=== PATIENT | female | born 1950 | race Caucasian/White ===

== ENCOUNTER → 2016-12-29 | Outpatient (REF) | payer OTHER ==
[2016-12-29 18:40] LABS: PERCENT SATURATION 9.2 % (13.2-37.4)
== END ==
LOC: M LAB REF 16:38
PROVIDERS: ATTEND Internal Medicine Medical Oncology
DX: Z79.811 Long term (current) use of aromatase inhibitors (principal); C50.411 Malignant neoplasm of upper-outer quadrant of right female breast

== ENCOUNTER → 2017-01-05 | Outpatient (REF) | payer OTHER ==
[2017-01-07 00:09] LABS: ENDOMYSIAL ABY IgA Negative (Negative)
== END ==
LOC: M LAB REF 12:32
PROVIDERS: ATTEND Internal Medicine Medical Oncology
DX: C50.919 Malignant neoplasm of unspecified site of unspecified female breast (principal)

== ENCOUNTER → 2017-02-11 | Outpatient (CLI) | payer OTHER ==
--- NOTE | 2017-02-12 05:45 | REP ---
LOW-DOSE LUNG SCREENING CT: 02/11/2017. Clinical history: Smoker, history of nicotine dependence. 55 pack years. Stopped smoking 8 months ago. Technique: Low dose screening lung CT with lung windows at 3 mm slice interval and projection. Comparison: chest x-ray: 05/13/2012. Findings: Lungs are well inflated. In the left upper lobe posteriorly and medially is a lobulated nodular density 14 x 10 mm. It has two branching limbs from it. This could be a pulmonary varix or a lung nodule. This is seen on images 20-25. Some of it stranding superior and medial to it towards the right paraspinal region in the upper thoracic levels. On image 70 and 71, there is a 5.5 mm smoothly marginated nodule in the left lower lobe just behind the major fissure to the left heart border. Neither of these lung lesions show calcification. There is another subpleural nodule left lower lobe 4.6 mm long just posterior to the midclavicular line on image 63 in that left lung. Some ill-defined parenchymal fibrotic change or sub-solid density in the right paraspinal region on images 24 through 26. There is 2 mm nodule right upper lobe mid axial mid axillary line on image 17. I do not see other significant lung lesions or nodules. There is some scarring in the lateral segment right middle lobe abutting the pleural surface in the mid axillary line. Impression: 1. Lung RADS category 4 suspicious. A 14 x 10 mm lesion in the left upper lobe which could be solid nodule or vascular pulmonary structure. It appears continuous with the pulmonary vessel or immediately adjacent. Contrast CT recommended. The other smaller nodules are as described. Similarly they can be followed at the time of the definitive contrast CT. Signed by Dane Willis MD 02/12/2017 04:33 P
== END ==
LOC: M RAD 12:37
PROVIDERS: ATTEND Internal Medicine Medical Oncology
DX: Z87.891 Personal history of nicotine dependence (principal)

== ENCOUNTER → 2017-03-03 | Outpatient (CLI) | payer OTHER ==
--- NOTE | 2017-03-03 13:51 | REPMRS ---
Patient History The patient states she had a clinical breast exam in 02/24 Patient has history of cancer in the right breast at age 61. Family history of premenopausal breast cancer in paternal aunt at age 50 or over. Benign radio exam breast specimen of the right breast, April 25, 2014. Benign stereotatic loc for ea lesion of the right breast, April 25, 2014. Malignant radio exam breast specimen of the right breast, May 19, 2012. Malignant localization of breast nodule of the right breast, May 19, 2012. Radiation therapy of the right breast, 2011. Benign stereotactic core biopsy of the left breast. Benign excisional biopsy of the right breast. Taking tamoxifen for 5 years. Digital Woman Screen Mammo: March 03, 2017 - Exam #: [id number] Bilateral CC and MLO view(s) were taken. Technologist: Vannesa Santana, Technologist Prior study comparison: February 18, 2016, digital woman screen mammo performed at [facility] to [facility]. February 15, 2015, digital woman screen mammo performed at [facility] to [facility]. February 22, 2014, right breast digital mammo diagnostic unilateral, performed at [facility]. FINDINGS: There are scattered fibroglandular densities. There are stable post treatment changes in the right breast. There is a needle biopsy marker clip in the left breast. There has been no change in the appearance of the mammogram from the prior studies. There is a mild amount of scattered fibroglandular density which is fairly symmetric. There is no interval development of dominant mass, architectural distortion, or clustered microcalcification suggestive of malignancy. ASSESSMENT: BI-RADS/ACR category 1 mammogram. Negative. Recommendation Routine screening mammogram in 1 year (for women over age 40). This mammogram was interpreted with the aid of an FDA-approved computer-aided dectection system. Electronically Signed By: Adryan Medina MD 03/03/17 [id number]
== END ==
LOC: M WHC 11:07
PROVIDERS: ATTEND Nurse Practitioner Family
DX: Z01.419 Encounter for gynecological examination (general) (routine) without abnormal findings (principal); Z12.31 Encounter for screening mammogram for malignant neoplasm of breast; Z12.12 Encounter for screening for malignant neoplasm of rectum; Z85.3 Personal history of malignant neoplasm of breast
CPT/HCPCS: 82270; G0101; G0202

== ENCOUNTER → 2017-03-04 | Outpatient (REF) | payer OTHER ==
[2017-03-04 15:00] LABS: BLOOD UREA NITROGEN 10 MG/DL (7-18); CREATININE FOR GFR 0.62 MG/DL (0.55-1.02); GLOMERULAR FILTRATION RATE > 60.0 (>45)
== END ==
LOC: M LAB REF 13:30
PROVIDERS: ATTEND Internal Medicine Pulmonary Disease
DX: R91.8 Other nonspecific abnormal finding of lung field (principal)

== ENCOUNTER → 2017-03-30 | Outpatient (REF) | payer OTHER ==
[2017-03-30 14:48] LABS: PERCENT SATURATION 15.7 % (13.2-37.4)
== END ==
LOC: M LAB REF 13:23
PROVIDERS: ATTEND Internal Medicine Medical Oncology
DX: C50.919 Malignant neoplasm of unspecified site of unspecified female breast (principal)

== ENCOUNTER → 2017-03-31 | Outpatient (REF) | payer OTHER ==
[2017-03-31 13:24] LABS: BLOOD UREA NITROGEN 7 MG/DL (7-18); CREATININE FOR GFR 0.55 MG/DL (0.55-1.02); GLUCOSE, FASTING 126 MG/DL (80-110)
[2017-03-31 13:25] LABS: ALBUMIN 3.6 GM/DL (3.2-5.2); ALKALINE PHOSPHATASE 59 U/L (45-117); ALT/SGPT 37 U/L (12-78); ANION GAP 6 MEQ/L (8-16); AST/SGOT 23 U/L (15-37); BILIRUBIN,TOTAL 0.3 MG/DL (0.2-1.0); CALCIUM LEVEL 8.6 MG/DL (8.8-10.2); CARBON DIOXIDE LEVEL 31 MEQ/L (21-32); CHLORIDE LEVEL 103 MEQ/L (98-107); CHOLESTEROL LEVEL 108 MG/DL (<200); GLOMERULAR FILTRATION RATE > 60.0 (>45); POTASSIUM SERUM 3.7 MEQ/L (3.5-5.1); SODIUM LEVEL 140 MEQ/L (136-145); TOTAL PROTEIN 6.6 GM/DL (6.4-8.2); TRIGLYCERIDES LEVEL 222 MG/DL (<150)
== END ==
LOC: M LABDRAW1 11:42
PROVIDERS: ATTEND Emergency Medicine
DX: E11.65 Type 2 diabetes mellitus with hyperglycemia (principal); I10 Essential (primary) hypertension; E78.2 Mixed hyperlipidemia

== ENCOUNTER → 2017-04-08 | Outpatient (CLI) | payer OTHER ==
[~2017-04-08] MED LIST: ISOVUE-370 76% 100ML VIAL (Q9967) As Ordered ONE
--- NOTE | 2017-04-08 13:16 | REP ---
CT of the chest with IV contrast: Comparison is the low-dose screening chest CT without IV contrast dated 02/11/2017 that identified a left upper lobe lung nodule. 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 The thoracic aorta is well opacified with intraluminal contrast. The pulmonary arteries are less well opacified, however, the aneurysm can be seen along the course of the left upper lobe pulmonary artery and is opacified similar to the remainder of the pulmonary arteries. The aneurysm measures 10.2 mm short axis diameter and spans a craniocaudad length of approximately 18 mm and occurs just prior to a bifurcation and in cooperates the bifurcation. There are no other lung nodules or masses. There are no acute infiltrates or effusions. There is an enlarged anterior mediastinal node measuring up to 13 mm short axis. There is no other mediastinal adenopathy. There is no hilar adenopathy. There is a large 2.7 cm mass/cyst in the thyroid left lobe and a smaller 10 mm mass/cyst in the thyroid isthmus. There is also a calcification in the thyroid isthmus. Thyroid ultrasound and radionuclide thyroid scan follow-up might be considered. There is no axillary adenopathy. The thoracic aorta is unremarkable. Cardiac size is normal. There is no pericardial effusion. The visualized upper abdominal contents are unremarkable except that the liver is less dense than the spleen suggestive of hepato steatosis. 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 No other lung nodules or masses are identified. There is an enlarged anterior mediastinal node. There are two masses/cyst in the thyroid and in thyroid calcifications. Follow-up thyroid ultrasound and with scan might be considered. There are no acute cardiopulmonary findings. No adenopathy. Otherwise, negative study except that the liver is diffusely slightly less dense than the spleen compatible with hepato steatosis. Signed by Neftali Del Rosario MD 04/08/2017 01:07 P
== END ==
LOC: M RAD 10:24
PROVIDERS: ATTEND Internal Medicine Pulmonary Disease
DX: R91.8 Other nonspecific abnormal finding of lung field (principal)
CPT/HCPCS: 71260; Q9967

== ENCOUNTER → 2017-04-14 | Outpatient (CLI) | payer OTHER ==
--- NOTE | 2017-04-15 09:45 | DEXA ---
AP SPINE L1 - L4 1.485 2.3 4.0 LT FEMUR TOTAL 1.122 0.9 2.2 RT FEMUR TOTAL 1.139 1.0 2.4 TOTAL BODY TOTAL OTHER DUAL FEMUR FRAX* ASSESSMENT Risk factors: History of adult fracture. 10 year probability of fracture Major osteoporotic fracture 11.6 % Hip fracture 0.5 % COMMENTS: Normal bone densitometry of the spine and hips. The density of the spine has increased 4.1% since the initial exam on 01/2001. The spine density has increased 1.0% since the most recent exam on 02/2014. The density of the left hip has decreased 13.0% since the initial exam on 2000. The density of the left hip has decreased 7.2% since the most recent exam on 2013. The density of the right hip has decreased 8.1% since the initial exam on 2000. The density of the right hip has decreased 4.0% since the most recent exam on 2013. FOLLOW-UP: Recommendation for the next bone density exam: 5 years. MINDA
== END ==
LOC: M WHC 10:24
PROVIDERS: ATTEND Internal Medicine Medical Oncology
DX: N95.1 Menopausal and female climacteric states (principal); Z79.899 Other long term (current) drug therapy

== ENCOUNTER → 2017-07-01 | Outpatient (REF) | payer OTHER ==
[2017-07-01 14:00] LABS: PERCENT SATURATION 14.3 % (13.2-45.0)
== END ==
LOC: M LAB REF 10:20
PROVIDERS: ATTEND Internal Medicine Medical Oncology
DX: C50.919 Malignant neoplasm of unspecified site of unspecified female breast (principal)

== ENCOUNTER → 2017-08-30 | Outpatient (CLI) | payer OTHER ==
[2017-08-30 18:55] LABS: BLOOD UREA NITROGEN 10 MG/DL (7-18); CREATININE FOR GFR 0.67 MG/DL (0.55-1.02); GLOMERULAR FILTRATION RATE > 60.0 (>45)
== END ==
LOC: M SMT 15:00
PROVIDERS: ATTEND Internal Medicine Pulmonary Disease
DX: Q27.30 Arteriovenous malformation, site unspecified (principal)

== ENCOUNTER → 2017-09-22 | Outpatient (CLI) | payer OTHER ==
--- NOTE | 2017-09-22 13:35 | REP ---
CT of the chest with IV contrast: Comparison is 04/08/2017. On the prior study there was a 10 mm pulmonary artery aneurysm posteriorly in the left upper lobe. This aneurysm is no longer present on the study today. There are no emboli in the pulmonary trunk or central pulmonary arteries. There are no emboli in the pulmonary lobe or segment branches. Previously there was an enlarged anterior mediastinal node on the left measuring up to 13 mm short axis. This node has increased in size and has a multilobular appearance today measuring 3.4 x 4.1 cm. The 2.7 cm low-density mass in the left lobe of the thyroid is unchanged. The 1 cm low density mass in the thyroid isthmus is unchanged. The calcification in the thyroid isthmus is unchanged. There are no infiltrates or effusions. There are no other lung nodules or masses. There is no mediastinal, hilar or axillary adenopathy. There are numerous clips in the right axilla and in the right breast. This is unchanged. The patient's clinical history right breast carcinoma. The thoracic aorta is unremarkable. Cardiac size is normal. There is no pericardial effusion. The visualized upper abdominal contents are unremarkable. There is no adrenal mass. Impression: The previously identified left upper lobe pulmonary artery aneurysm is no longer identified. The previously identified enlarged anterior mediastinal node has significantly increased in size and now has a multilobulated appearance. The low density masses in the thyroid are unchanged. There is no adenopathy. Surgical clips in the right breast in right axilla, unchanged in this patient with history of breast carcinoma. There are no new lung nodules. There are no acute infiltrates or effusions. Signed by Neftali Del Rosario MD 09/22/2017 01:26 P
== END ==
LOC: M RAD 11:03
PROVIDERS: ATTEND Internal Medicine Pulmonary Disease
DX: Q27.30 Arteriovenous malformation, site unspecified (principal)
CPT/HCPCS: 71275; Q9967

== ENCOUNTER → 2017-09-24 | Outpatient (REF) | payer OTHER ==
[2017-09-24 10:01] LABS: ALBUMIN 3.9 GM/DL (3.2-5.2); ALBUMIN/GLOBULIN RATIO 1.26 (1.00-1.93); ALKALINE PHOSPHATASE 55 U/L (45-117); ALT/SGPT 27 U/L (12-78); ANION GAP 9 MEQ/L (8-16); AST/SGOT 21 U/L (7-37); BILIRUBIN,TOTAL 0.4 MG/DL (0.2-1.0); BLOOD UREA NITROGEN 9 MG/DL (7-18); CALCIUM LEVEL 8.8 MG/DL (8.8-10.2); CARBON DIOXIDE LEVEL 29 MEQ/L (21-32); CHLORIDE LEVEL 102 MEQ/L (98-107); CHOLESTEROL LEVEL 124 MG/DL (<200); CREATININE FOR GFR 0.58 MG/DL (0.55-1.02); GLOMERULAR FILTRATION RATE > 60.0 (>45); GLUCOSE, FASTING 139 MG/DL (80-110); POTASSIUM SERUM 3.4 MEQ/L (3.5-5.1); SODIUM LEVEL 140 MEQ/L (136-145); TRIGLYCERIDES LEVEL 178 MG/DL (<150)
== END ==
LOC: M LABDRAW1 08:16
PROVIDERS: ATTEND Emergency Medicine
DX: E11.65 Type 2 diabetes mellitus with hyperglycemia (principal); I10 Essential (primary) hypertension; E78.2 Mixed hyperlipidemia; E55.9 Vitamin D deficiency, unspecified

== ENCOUNTER → 2017-10-22 | Outpatient (CLI) | payer OTHER ==
[2017-10-22 11:55] LABS: ABG BASE EXCESS 2.1 (-2.0-2.0); ABG DEVICE ROOM AIR; ABG HCO3 26.4 MEQ/L (22.0-26.0); ABG O2 SATURATION 96.3 % (95.0-99.0); ABG PARTIAL PRESSURE CO2 40.1 mmHg (35.0-45.0); ABG PARTIAL PRESSURE O2 78.1 mmHg (75.0-100.0); ABG STANDARD HCO3 26.3 MEQ/L (22.0-26.0); ABG TOTAL CO2 27.7 MEQ/L (23.0-31.0); ABG pH (ARTERIAL) 7.437 UNITS (7.350-7.450)
[2017-10-22 12:29] LABS: HEMATOCRIT 45.5 % (36.0-47.0); HEMOGLOBIN 14.6 g/dl (12.0-16.0); MEAN CORPUSCULAR HEMOGLOBIN 26.6 pg (27.0-33.0); MEAN CORPUSCULAR HGB CONC 32.1 g/dl (32.0-36.5); PLATELET COUNT, AUTOMATED 250 10^3/uL (150-450); RED BLOOD COUNT 5.48 10^6/uL (4.00-5.40); RED CELL DISTRIBUTION WIDTH 16.1 % (11.5-14.5); WHITE BLOOD COUNT 7.9 10^3/uL (4.0-10.0)
[2017-10-22 12:30] LABS: APPEARANCE, URINE CLEAR (CLEAR); BACTERIA, URINE AUTO NEGATIVE (NEGATIVE); BILIRUBIN, URINE AUTO NEGATIVE (NEGATIVE); BLOOD, URINE BLOOD NEGATIVE (NEGATIVE); COLOR, URINE YELLOW (YELLOW); GLUCOSE, URINE (UA) AUTO 3+ mg/dL (NEGATIVE); KETONE, URINE AUTO TRACE mg/dL (NEGATIVE); LEUKOCYTE ESTERASE, URINE AUTO NEGATIVE (NEGATIVE); NITRITE, URINE AUTO NEGATIVE (NEGATIVE); PROTEIN, URINE AUTO NEGATIVE (NEGATIVE); RBC, URINE AUTO 1 /HPF (0-3); SPECIFIC GRAVITY URINE AUTO 1.027 (1.002-1.035); SQUAMOUS EPITHELIAL CELL UR AU 0 /HPF (0-6); UROBILINOGEN, URINE AUTO 0.2 mg/dL (0.0-2.0); WBC, URINE AUTO 1 /HPF (0-3)
[2017-10-22 12:39] LABS: INR 0.94; PROTHROMBIN TIME 12.6 SECONDS (12.4-14.5)
[2017-10-22 12:40] LABS: PARTIAL THROMBOPLASTIN TIME 26.7 SECONDS (26.8-37.9)
[2017-10-22 13:18] LABS: ANION GAP 9 MEQ/L (8-16); BLOOD UREA NITROGEN 15 MG/DL (7-18); CALCIUM LEVEL 9.6 MG/DL (8.8-10.2); CARBON DIOXIDE LEVEL 28 MEQ/L (21-32); CHLORIDE LEVEL 104 MEQ/L (98-107); CREATININE FOR GFR 0.68 MG/DL (0.55-1.02); GLOMERULAR FILTRATION RATE > 60.0 (>45); GLUCOSE, FASTING 133 MG/DL (80-110); SODIUM LEVEL 141 MEQ/L (136-145)
== END ==
LOC: M ADMPAT 10:22
DX: Z01.818 Encounter for other preprocedural examination (principal); Z79.899 Other long term (current) drug therapy
CPT/HCPCS: 71046

== ENCOUNTER 2017-11-02 05:54 | Inpatient (IN) | payer OTHER ==
[2017-11-02] MEDS: LR 1,000 ML IV ×2 (06:15→12:00)
[2017-11-02 06:32] LABS: BEDSIDE GLUCOSE 184 MG/DL (80-115)
[2017-11-02] MEDS: MUPIROCIN 2% OINT 22 GM TUBE TOP (07:46)
[2017-11-02] MEDS: metFORMIN (GLUCOPHAGE) 1000 MG TABLET PO (08:00)
[2017-11-02] MEDS: VITAMIN D 1,000 INTERNATIONAL UNITS TABLET PO (09:00)
[2017-11-02] MEDS: DYAZIDE 37.5/25 CAP (TRIAM/HCTZ) PO (09:00)
[2017-11-02] MEDS: ATENOLOL 50 MG TAB PO (09:00)
[2017-11-02] MEDS: HEPARIN SOD (PORCINE) 5000 UNITS/ML VIAL SC ×2 (09:00→20:25)
[2017-11-02] MEDS: MULTIVITAMINS/MINERALS THERAP 1 TAB PO (09:00)
[2017-11-02] MEDS: MOM 30ML SUSPENSION UDC PO (09:00)
[2017-11-02] MEDS: DOCUSATE SODIUM 100 MG CAP PO ×2 (09:00→20:24)
[2017-11-02] MEDS: SIMVASTATIN 40 MG TAB PO (09:00)
[2017-11-02] MEDS: CALCIUM/VITAMIN D 500 MG TAB PO ×2 (09:00→20:25)
[2017-11-02 09:31] LABS: ABG BASE EXCESS 0.8 (-2.0-2.0); ABG DEVICE MECHAN. VENT; ABG FIO2 51; ABG HCO3 27.7 MEQ/L (22.0-26.0); ABG O2 SATURATION 96.2 % (95.0-99.0); ABG PARTIAL PRESSURE CO2 53.3 mmHg (35.0-45.0); ABG PARTIAL PRESSURE O2 87.4 mmHg (75.0-100.0); ABG PULSE OX 95; ABG SITE ART LINE; ABG STANDARD HCO3 25.2 MEQ/L (22.0-26.0); ABG TOTAL CO2 29.3 MEQ/L (23.0-31.0); ABG pH (ARTERIAL) 7.333 UNITS (7.350-7.450)
[2017-11-02] MEDS: THROMBIN SOLN 20,000 UNITS KIT As Ordered (10:28)
[2017-11-02] MEDS: BUPIVACAINE LIPOSOME/PF 1.3% 20 ML VIAL (13.3MG/ML)(EXPAREL) As Ordered (11:05)
[2017-11-02] MEDS: BUPIVACAINE HCL 0.5% 10 ML VIAL As Ordered (11:05)
[2017-11-02] MEDS ORDERED: DEXTROSE 50% 50 ML SYRINGE IV (11:15)
[2017-11-02] MEDS ORDERED: GLUCOSE 4 GM CHEW TABLET PO (11:15)
[2017-11-02] MEDS ORDERED: LEVALBUTEROL 1.25 MG/0.5 ML CONCENTRATE NEB NEB (11:15)
[2017-11-02] MEDS ORDERED: GLUCAGON FOR INJ 1 MG VIAL (J1610) SC (11:15)
[2017-11-02] MEDS ORDERED: ACETAMINOPHEN TAB 650MG DOSE (2X325MG) PO (11:15)
[2017-11-02] MEDS ORDERED: HYDROmorphone HCL 1 MG/ML SYRINGE (J1170) As Ordered ×2 (11:48→13:18)
[2017-11-02] MEDS: HYDROmorphone HCL 1 MG/ML SYRINGE (J1170) IV ×5 (11:52→13:45)
[2017-11-02 11:54] LABS: ABG BASE EXCESS 0.4 (-2.0-2.0); ABG HCO3 27.2 MEQ/L (22.0-26.0); ABG O2 SATURATION 96.7 % (95.0-99.0); ABG PARTIAL PRESSURE CO2 52.7 mmHg (35.0-45.0); ABG PARTIAL PRESSURE O2 92.7 mmHg (75.0-100.0); ABG STANDARD HCO3 24.8 MEQ/L (22.0-26.0); ABG TOTAL CO2 28.8 MEQ/L (23.0-31.0); ABG pH (ARTERIAL) 7.331 UNITS (7.350-7.450)
[2017-11-02] MEDS ORDERED: KETOROLAC 30 MG/ML VIAL (J1885) IV (12:00)
[2017-11-02] MEDS: HumaLOG INSULIN (NovoLOG) PER UNIT SC ×3 (12:00→17:28)
[2017-11-02] MEDS ORDERED: ONDANSETRON 4MG/2ML VIAL (J2405) IV (12:00)
[2017-11-02 12:05] LABS: BASO % 0.4 % (0.0-1.0); EOS % 0.2 % (0.0-3.0); HEMATOCRIT 36.1 % (36.0-47.0); HEMOGLOBIN 11.7 g/dl (12.0-16.0); IMMATURE GRANULOCYTE # 0.1 10^3/uL (0-0); IMMATURE GRANULOCYTE % 0.5 % (0-0); LYMPH # 1.1 10^3/uL (1.5-4.5); LYMPH % 11.3 % (24.0-44.0); MEAN CORPUSCULAR HGB CONC 32.4 g/dl (32.0-36.5); MEAN CORPUSCULAR VOLUME 83.2 fl (80.0-96.0); MONO # 0.3 10^3/uL (0.0-0.8); NEUTROPHILS % 84.6 % (36.0-66.0); PLATELET COUNT, AUTOMATED 200 10^3/uL (150-450); RED BLOOD COUNT 4.34 10^6/uL (4.00-5.40); RED CELL DISTRIBUTION WIDTH 15.9 % (11.5-14.5); WHITE BLOOD COUNT 9.5 10^3/uL (4.0-10.0)
[2017-11-02] MEDS: fentaNYL 100 MCG/2 ML INJECTION (J3010) IV ×4 (12:18→12:47)
[2017-11-02 12:23] LABS: ANION GAP 8 MEQ/L (8-16); BLOOD UREA NITROGEN 17 MG/DL (7-18); CALCIUM LEVEL 8.2 MG/DL (8.8-10.2); CARBON DIOXIDE LEVEL 27 MEQ/L (21-32); CHLORIDE LEVEL 104 MEQ/L (98-107); CREATININE FOR GFR 0.71 MG/DL (0.55-1.02); GLOMERULAR FILTRATION RATE > 60.0 (>45); GLUCOSE, FASTING 333 MG/DL (70-100); POTASSIUM SERUM 3.9 MEQ/L (3.5-5.1); SODIUM LEVEL 139 MEQ/L (136-145)
[2017-11-02] MEDS ORDERED: MIDAZOLAM INJ 2 MG/2 ML VIAL (J2250) As Ordered (12:29)
[2017-11-02] MEDS ORDERED: fentaNYL 250 MCG/5 ML INJECTION (J3010) As Ordered (12:29)
[2017-11-02] MEDS ORDERED: HYDROmorphone HCL 2 MG/ML 1ML VIAL (J1170) As Ordered (12:29)
[2017-11-02] MEDS ORDERED: PROPOFOL 200 MG/20 ML VIAL As Ordered (12:30)
[2017-11-02] MEDS ORDERED: ONDANSETRON 4MG/2ML VIAL (J2405) As Ordered (12:30)
[2017-11-02] MEDS ORDERED: KETOROLAC 60 MG/2 ML VIAL (J1885) As Ordered (12:30)
[2017-11-02] MEDS ORDERED: SUGAMMADEX SODIUM 500 MG/5 ML VIAL (BRIDION) As Ordered (12:30)
[2017-11-02] MEDS ORDERED: LIDOCAINE 2% INJ 100 MG/5 ML SDV (FOR ANES.) As Ordered (12:30)
[2017-11-02] MEDS ORDERED: ROCURONIUM BROMIDE 50 MG/5 ML VIAL As Ordered ×2 (12:30)
[2017-11-02] MEDS ORDERED: dexameTHASONE 4 MG/ML 1ML VIAL (J1100) As Ordered (12:30)
[2017-11-02] MEDS: LEVALBUTEROL 1.25 MG/0.5 ML CONCENTRATE NEB NEB ×2 (13:09→19:59)
[2017-11-02] MEDS ORDERED: KETOROLAC 30 MG/ML VIAL (J1885) As Ordered (13:18)
[2017-11-02] MEDS: KETOROLAC 30 MG/ML VIAL (J1885) IV ×2 (13:20→18:12)
[2017-11-02 14:58] LABS: BEDSIDE GLUCOSE 320 MG/DL (80-115)
[2017-11-02 15:01] LABS: BEDSIDE GLUCOSE 220 MG/DL (80-115)
[2017-11-02] MEDS: KCL 20MEQ IN D5/NS 1000ML 1,000 ML IV (15:01)
[2017-11-02] MEDS: RAMIPRIL 5 MG CAP PO (15:55)
[2017-11-02] MEDS: GLIMEPIRIDE 2 MG TAB PO (15:55)
[2017-11-02] MEDS: ASPIRIN 81 MG ENTERIC TAB PO (15:55)
[2017-11-02] MEDS: SITagliptin 50 MG TAB (JANUVIA) PO (15:55)
[2017-11-02] MEDS: CEFAZOLIN SOD 1 GM in APPROPRIATE DILUENT 1 EA IV ×2 (15:56→23:14)
[2017-11-02] MEDS: PERCOCET 5MG/325MG TAB PO ×2 (16:14→20:27)
[2017-11-02 16:16] LABS: BEDSIDE GLUCOSE 228 MG/DL (80-115)
[2017-11-02] MEDS: NORCO, ANEXSIA 5/325MG TABLET (HYDROcodone/ACETAMINOPHEN) PO ×2 (17:27→21:56)
[2017-11-02] MEDS ORDERED: metFORMIN (GLUCOPHAGE) 500 MG TAB PO (18:00)
[2017-11-02] MEDS: AMITRIPTYLINE 10 MG TAB PO (20:24)
[2017-11-02] MEDS: FLUTICASONE PROP 0.05% NASAL SPRAY 16 GM (FLONASE) (20:26)
[2017-11-02] MEDS: ONDANSETRON 4MG/2ML VIAL (J2405) IV (22:17)
[2017-11-03] MEDS: LEVALBUTEROL 1.25 MG/0.5 ML CONCENTRATE NEB NEB ×4 (00:51→21:11)
[2017-11-03] MEDS: KCL 20MEQ IN D5/NS 1000ML 1,000 ML IV (01:09)
[2017-11-03] MEDS: KETOROLAC 30 MG/ML VIAL (J1885) IV ×4 (01:09→18:17)
[2017-11-03] MEDS: PERCOCET 5MG/325MG TAB PO ×5 (01:11→19:55)
[2017-11-03] MEDS: NORCO, ANEXSIA 5/325MG TABLET (HYDROcodone/ACETAMINOPHEN) PO (04:19)
[2017-11-03 06:09] LABS: ABG BASE EXCESS -0.7 (-2.0-2.0); ABG HCO3 23.2 MEQ/L (22.0-26.0); ABG O2 SATURATION 99.2 % (95.0-99.0); ABG PARTIAL PRESSURE CO2 35.2 mmHg (35.0-45.0); ABG PARTIAL PRESSURE O2 174.9 mmHg (75.0-100.0); ABG TOTAL CO2 24.3 MEQ/L (23.0-31.0); ABG pH (ARTERIAL) 7.437 UNITS (7.350-7.450)
[2017-11-03] MEDS: CEFAZOLIN SOD 1 GM in APPROPRIATE DILUENT 1 EA IV ×3 (06:29→23:00)
[2017-11-03 06:41] LABS: ANION GAP 7 MEQ/L (8-16); BLOOD UREA NITROGEN 14 MG/DL (7-18); CALCIUM LEVEL 6.9 MG/DL (8.8-10.2); CARBON DIOXIDE LEVEL 28 MEQ/L (21-32); CHLORIDE LEVEL 107 MEQ/L (98-107); CREATININE FOR GFR 0.41 MG/DL (0.55-1.02); GLOMERULAR FILTRATION RATE > 60.0 (>45); GLUCOSE, FASTING 132 MG/DL (70-100); POTASSIUM SERUM 4.7 MEQ/L (3.5-5.1); SODIUM LEVEL 142 MEQ/L (136-145)
[2017-11-03 07:09] LABS: BASO % 0.3 % (0.0-1.0); EOS % 0.4 % (0.0-3.0); HEMATOCRIT 34.7 % (36.0-47.0); HEMOGLOBIN 11.2 g/dl (12.0-16.0); IMMATURE GRANULOCYTE % 0.4 % (0-0); LYMPH # 1.4 10^3/uL (1.5-4.5); LYMPH % 18.7 % (24.0-44.0); MEAN CORPUSCULAR HEMOGLOBIN 26.7 pg (27.0-33.0); MEAN CORPUSCULAR HGB CONC 32.3 g/dl (32.0-36.5); MEAN CORPUSCULAR VOLUME 82.6 fl (80.0-96.0); MONO # 0.7 10^3/uL (0.0-0.8); MONO % 8.8 % (0.0-5.0); NEUTROPHILS # 5.5 10^3/uL (1.8-7.7); NEUTROPHILS % 71.4 % (36.0-66.0); PLATELET COUNT, AUTOMATED 194 10^3/uL (150-450); RED CELL DISTRIBUTION WIDTH 16.3 % (11.5-14.5); WHITE BLOOD COUNT 7.6 10^3/uL (4.0-10.0)
[2017-11-03] MEDS: MOM 30ML SUSPENSION UDC PO (08:59)
[2017-11-03] MEDS: tiZANidine 4 MG TAB PO (08:59)
[2017-11-03] MEDS: SITagliptin 50 MG TAB (JANUVIA) PO (08:59)
[2017-11-03] MEDS: RAMIPRIL 5 MG CAP PO (09:00)
[2017-11-03] MEDS: amLODIPine 10 MG TAB PO (09:00)
[2017-11-03] MEDS: HumaLOG INSULIN (NovoLOG) PER UNIT SC ×3 (09:00→18:16)
[2017-11-03] MEDS: ATENOLOL 50 MG TAB PO (09:00)
[2017-11-03] MEDS: MULTIVITAMINS/MINERALS THERAP 1 TAB PO (09:00)
[2017-11-03] MEDS: metFORMIN (GLUCOPHAGE) 1000 MG TABLET PO (09:00)
[2017-11-03] MEDS: VITAMIN D 1,000 INTERNATIONAL UNITS TABLET PO (09:01)
[2017-11-03] MEDS: ASPIRIN 81 MG ENTERIC TAB PO (09:01)
[2017-11-03] MEDS: DOCUSATE SODIUM 100 MG CAP PO ×2 (09:01→20:25)
[2017-11-03] MEDS: SIMVASTATIN 40 MG TAB PO (09:02)
[2017-11-03] MEDS: PANTOPRAZOLE 40MG TAB (PROTONIX) PO (09:02)
[2017-11-03] MEDS: DYAZIDE 37.5/25 CAP (TRIAM/HCTZ) PO (09:02)
[2017-11-03] MEDS: CALCIUM/VITAMIN D 500 MG TAB PO ×2 (09:03→20:25)
[2017-11-03] MEDS: HEPARIN SOD (PORCINE) 5000 UNITS/ML VIAL SC ×2 (09:03→21:05)
[2017-11-03] MEDS: GLIMEPIRIDE 2 MG TAB PO (10:39)
[2017-11-03 12:08] LABS: BEDSIDE GLUCOSE 183 MG/DL (80-115)
[2017-11-03 12:50] LABS: ALBUMIN 2.8 GM/DL (3.2-5.2)
[2017-11-03] MEDS: metFORMIN (GLUCOPHAGE) 500 MG TAB PO (18:16)
[2017-11-03 18:19] LABS: BEDSIDE GLUCOSE 164 MG/DL (80-115)
[2017-11-03] MEDS: AMITRIPTYLINE 10 MG TAB PO (20:25)
[2017-11-03] MEDS: FLUTICASONE PROP 0.05% NASAL SPRAY 16 GM (FLONASE) (20:26)
[2017-11-04] MEDS: KETOROLAC 30 MG/ML VIAL (J1885) IV ×4 (00:51→18:08)
[2017-11-04] MEDS: LEVALBUTEROL 1.25 MG/0.5 ML CONCENTRATE NEB NEB ×4 (01:29→20:51)
[2017-11-04] MEDS: ONDANSETRON 4MG/2ML VIAL (J2405) IV ×2 (03:45→12:53)
[2017-11-04 05:47] LABS: BASO % 0.4 % (0.0-1.0); EOS # 0.2 10^3/uL (0.0-0.50); EOS % 2.6 % (0.0-3.0); HEMATOCRIT 33.7 % (36.0-47.0); HEMOGLOBIN 10.6 g/dl (12.0-16.0); IMMATURE GRANULOCYTE % 0.3 % (0-0); LYMPH # 1.4 10^3/uL (1.5-4.5); LYMPH % 19.9 % (24.0-44.0); MEAN CORPUSCULAR HEMOGLOBIN 26.6 pg (27.0-33.0); MEAN CORPUSCULAR HGB CONC 31.5 g/dl (32.0-36.5); MEAN CORPUSCULAR VOLUME 84.7 fl (80.0-96.0); MONO # 0.6 10^3/uL (0.0-0.8); MONO % 9.3 % (0.0-5.0); NEUTROPHILS # 4.6 10^3/uL (1.8-7.7); NEUTROPHILS % 67.5 % (36.0-66.0); PLATELET COUNT, AUTOMATED 160 10^3/uL (150-450); RED BLOOD COUNT 3.98 10^6/uL (4.00-5.40); WHITE BLOOD COUNT 6.9 10^3/uL (4.0-10.0)
[2017-11-04 06:35] LABS: ANION GAP 5 MEQ/L (8-16); BLOOD UREA NITROGEN 13 MG/DL (7-18); CALCIUM LEVEL 8.2 MG/DL (8.8-10.2); CARBON DIOXIDE LEVEL 31 MEQ/L (21-32); CHLORIDE LEVEL 103 MEQ/L (98-107); CREATININE FOR GFR 0.43 MG/DL (0.55-1.02); GLOMERULAR FILTRATION RATE > 60.0 (>45); GLUCOSE, FASTING 121 MG/DL (70-100); POTASSIUM SERUM 3.6 MEQ/L (3.5-5.1); SODIUM LEVEL 139 MEQ/L (136-145)
[2017-11-04] MEDS: MOM 30ML SUSPENSION UDC PO (08:20)
[2017-11-04] MEDS: SIMVASTATIN 40 MG TAB PO (08:21)
[2017-11-04] MEDS: amLODIPine 10 MG TAB PO (08:21)
[2017-11-04] MEDS: HEPARIN SOD (PORCINE) 5000 UNITS/ML VIAL SC ×2 (08:21→20:05)
[2017-11-04] MEDS: PANTOPRAZOLE 40MG TAB (PROTONIX) PO (08:21)
[2017-11-04] MEDS: DOCUSATE SODIUM 100 MG CAP PO ×2 (08:21→20:05)
[2017-11-04] MEDS: MULTIVITAMINS/MINERALS THERAP 1 TAB PO (08:21)
[2017-11-04] MEDS: ASPIRIN 81 MG ENTERIC TAB PO (08:21)
[2017-11-04] MEDS: ATENOLOL 50 MG TAB PO (08:22)
[2017-11-04] MEDS: VITAMIN D 1,000 INTERNATIONAL UNITS TABLET PO (08:22)
[2017-11-04] MEDS: DYAZIDE 37.5/25 CAP (TRIAM/HCTZ) PO (08:23)
[2017-11-04] MEDS: RAMIPRIL 5 MG CAP PO (08:23)
[2017-11-04] MEDS: CALCIUM/VITAMIN D 500 MG TAB PO ×2 (08:24→20:05)
[2017-11-04] MEDS: GLIMEPIRIDE 2 MG TAB PO (08:24)
[2017-11-04] MEDS: metFORMIN (GLUCOPHAGE) 1000 MG TABLET PO (08:24)
[2017-11-04] MEDS: SITagliptin 50 MG TAB (JANUVIA) PO (08:24)
[2017-11-04] MEDS: NICOTINE 21MG/24HR 1 EA TRANSDERMAL TD (08:24)
[2017-11-04] MEDS: PERCOCET 5MG/325MG TAB PO ×3 (08:26→19:34)
[2017-11-04] MEDS: HumaLOG INSULIN (NovoLOG) PER UNIT SC ×3 (08:29→18:07)
[2017-11-04 12:13] LABS: BEDSIDE GLUCOSE 134 MG/DL (80-115)
[2017-11-04] MEDS: FUROSEMIDE 20 MG/2 ML VIAL (J1940) IV (15:09)
[2017-11-04] MEDS: metFORMIN (GLUCOPHAGE) 500 MG TAB PO (18:07)
[2017-11-04 18:09] LABS: BEDSIDE GLUCOSE 136 MG/DL (80-115)
[2017-11-04] MEDS: AMITRIPTYLINE 10 MG TAB PO (20:05)
[2017-11-04] MEDS: POTASSIUM CHLORIDE 10 MEQ SR TABLET PO (20:05)
[2017-11-04] MEDS: FLUTICASONE PROP 0.05% NASAL SPRAY 16 GM (FLONASE) (20:07)
[2017-11-05] MEDS: KETOROLAC 30 MG/ML VIAL (J1885) IV ×4 (01:21→18:50)
[2017-11-05] MEDS: PERCOCET 5MG/325MG TAB PO ×4 (01:22→21:02)
[2017-11-05] MEDS: LEVALBUTEROL 1.25 MG/0.5 ML CONCENTRATE NEB NEB ×4 (02:11→20:12)
[2017-11-05 06:02] LABS: BASO % 0.6 % (0.0-1.0); EOS # 0.2 10^3/uL (0.0-0.50); EOS % 2.9 % (0.0-3.0); HEMATOCRIT 35.2 % (36.0-47.0); HEMOGLOBIN 11.2 g/dl (12.0-16.0); IMMATURE GRANULOCYTE % 0.3 % (0-0); LYMPH # 1.4 10^3/uL (1.5-4.5); LYMPH % 20.7 % (24.0-44.0); MEAN CORPUSCULAR HEMOGLOBIN 27.1 pg (27.0-33.0); MEAN CORPUSCULAR HGB CONC 31.8 g/dl (32.0-36.5); MEAN CORPUSCULAR VOLUME 85.2 fl (80.0-96.0); MONO # 0.6 10^3/uL (0.0-0.8); MONO % 9.8 % (0.0-5.0); NEUTROPHILS # 4.3 10^3/uL (1.8-7.7); NEUTROPHILS % 65.7 % (36.0-66.0); PLATELET COUNT, AUTOMATED 178 10^3/uL (150-450); RED BLOOD COUNT 4.13 10^6/uL (4.00-5.40); RED CELL DISTRIBUTION WIDTH 15.9 % (11.5-14.5); WHITE BLOOD COUNT 6.6 10^3/uL (4.0-10.0)
[2017-11-05 06:16] LABS: ANION GAP 4 MEQ/L (8-16); BLOOD UREA NITROGEN 16 MG/DL (7-18); CALCIUM LEVEL 8.2 MG/DL (8.8-10.2); CARBON DIOXIDE LEVEL 31 MEQ/L (21-32); CHLORIDE LEVEL 105 MEQ/L (98-107); CREATININE FOR GFR 0.49 MG/DL (0.55-1.02); GLOMERULAR FILTRATION RATE > 60.0 (>45); GLUCOSE, FASTING 109 MG/DL (70-100); POTASSIUM SERUM 4.2 MEQ/L (3.5-5.1); SODIUM LEVEL 140 MEQ/L (136-145)
[2017-11-05 08:19] LABS: IONIZED CALCIUM 4.8 MG/DL (4.5-5.3)
[2017-11-05] MEDS: NICOTINE 21MG/24HR 1 EA TRANSDERMAL TD (08:21)
[2017-11-05] MEDS: MOM 30ML SUSPENSION UDC PO (08:21)
[2017-11-05] MEDS: POTASSIUM CHLORIDE 10 MEQ SR TABLET PO ×2 (08:22→21:00)
[2017-11-05] MEDS: DOCUSATE SODIUM 100 MG CAP PO ×2 (08:22→21:00)
[2017-11-05] MEDS: MULTIVITAMINS/MINERALS THERAP 1 TAB PO (08:22)
[2017-11-05] MEDS: DYAZIDE 37.5/25 CAP (TRIAM/HCTZ) PO (08:22)
[2017-11-05] MEDS: VITAMIN D 1,000 INTERNATIONAL UNITS TABLET PO (08:22)
[2017-11-05] MEDS: PANTOPRAZOLE 40MG TAB (PROTONIX) PO (08:23)
[2017-11-05] MEDS: SIMVASTATIN 40 MG TAB PO (08:23)
[2017-11-05] MEDS: GLIMEPIRIDE 2 MG TAB PO (08:23)
[2017-11-05] MEDS: RAMIPRIL 5 MG CAP PO (08:28)
[2017-11-05] MEDS: SITagliptin 50 MG TAB (JANUVIA) PO (08:28)
[2017-11-05] MEDS: metFORMIN (GLUCOPHAGE) 1000 MG TABLET PO (08:28)
[2017-11-05] MEDS: ASPIRIN 81 MG ENTERIC TAB PO (08:28)
[2017-11-05] MEDS: CALCIUM/VITAMIN D 500 MG TAB PO ×2 (08:29→21:00)
[2017-11-05] MEDS: HEPARIN SOD (PORCINE) 5000 UNITS/ML VIAL SC ×2 (08:29→21:00)
[2017-11-05] MEDS: amLODIPine 10 MG TAB PO (08:29)
[2017-11-05] MEDS: ATENOLOL 50 MG TAB PO (08:29)
[2017-11-05] MEDS: HumaLOG INSULIN (NovoLOG) PER UNIT SC ×3 (08:31→17:49)
[2017-11-05] MEDS: tiZANidine 4 MG TAB PO (09:46)
[2017-11-05] MEDS: BISACODYL 10 MG SUPP PR (11:31)
[2017-11-05 12:08] LABS: BEDSIDE GLUCOSE 213 MG/DL (80-115)
[2017-11-05 17:39] LABS: BEDSIDE GLUCOSE 165 MG/DL (80-115)
[2017-11-05] MEDS: metFORMIN (GLUCOPHAGE) 500 MG TAB PO (17:48)
[2017-11-05] MEDS: AMITRIPTYLINE 10 MG TAB PO (20:59)
[2017-11-05] MEDS: FLUTICASONE PROP 0.05% NASAL SPRAY 16 GM (FLONASE) (21:00)
[2017-11-05] MEDS: ONDANSETRON 4MG/2ML VIAL (J2405) IV (21:01)
[2017-11-06] MEDS: KETOROLAC 30 MG/ML VIAL (J1885) IV ×2 (01:50→06:46)
[2017-11-06] MEDS: LEVALBUTEROL 1.25 MG/0.5 ML CONCENTRATE NEB NEB ×2 (01:59→08:11)
[2017-11-06 04:24] LABS: BASO % 0.3 % (0.0-1.0); EOS # 0.2 10^3/uL (0.0-0.50); EOS % 2.6 % (0.0-3.0); HEMATOCRIT 33.8 % (36.0-47.0); HEMOGLOBIN 10.7 g/dl (12.0-16.0); IMMATURE GRANULOCYTE % 0.3 % (0-0); LYMPH # 1.1 10^3/uL (1.5-4.5); LYMPH % 15.8 % (24.0-44.0); MEAN CORPUSCULAR HEMOGLOBIN 26.6 pg (27.0-33.0); MEAN CORPUSCULAR HGB CONC 31.7 g/dl (32.0-36.5); MEAN CORPUSCULAR VOLUME 83.9 fl (80.0-96.0); MONO # 0.6 10^3/uL (0.0-0.8); MONO % 8.5 % (0.0-5.0); NEUTROPHILS # 5.1 10^3/uL (1.8-7.7); NEUTROPHILS % 72.5 % (36.0-66.0); PLATELET COUNT, AUTOMATED 209 10^3/uL (150-450); RED BLOOD COUNT 4.03 10^6/uL (4.00-5.40); RED CELL DISTRIBUTION WIDTH 16.3 % (11.5-14.5)
[2017-11-06 04:41] LABS: ANION GAP 4 MEQ/L (8-16); BLOOD UREA NITROGEN 19 MG/DL (7-18); CALCIUM LEVEL 8.7 MG/DL (8.8-10.2); CARBON DIOXIDE LEVEL 32 MEQ/L (21-32); CHLORIDE LEVEL 102 MEQ/L (98-107); GLOMERULAR FILTRATION RATE > 60.0 (>45); GLUCOSE, FASTING 155 MG/DL (70-100); POTASSIUM SERUM 4.5 MEQ/L (3.5-5.1); SODIUM LEVEL 138 MEQ/L (136-145)
[2017-11-06] MEDS: MOM 30ML SUSPENSION UDC PO (09:38)
[2017-11-06] MEDS: VITAMIN D 1,000 INTERNATIONAL UNITS TABLET PO (09:38)
[2017-11-06] MEDS: SITagliptin 50 MG TAB (JANUVIA) PO (09:39)
[2017-11-06] MEDS: ASPIRIN 81 MG ENTERIC TAB PO (09:39)
[2017-11-06] MEDS: GLIMEPIRIDE 2 MG TAB PO (09:39)
[2017-11-06] MEDS: DYAZIDE 37.5/25 CAP (TRIAM/HCTZ) PO (09:39)
[2017-11-06] MEDS: MULTIVITAMINS/MINERALS THERAP 1 TAB PO (09:40)
[2017-11-06] MEDS: DOCUSATE SODIUM 100 MG CAP PO (09:40)
[2017-11-06] MEDS: ATENOLOL 25 MG TAB PO (09:40)
[2017-11-06] MEDS: POTASSIUM CHLORIDE 10 MEQ SR TABLET PO (09:40)
[2017-11-06] MEDS: SIMVASTATIN 40 MG TAB PO (09:40)
[2017-11-06] MEDS: PANTOPRAZOLE 40MG TAB (PROTONIX) PO (09:41)
[2017-11-06] MEDS: metFORMIN (GLUCOPHAGE) 1000 MG TABLET PO (09:41)
[2017-11-06] MEDS: RAMIPRIL 5 MG CAP PO (09:41)
[2017-11-06] MEDS: NICOTINE 21MG/24HR 1 EA TRANSDERMAL TD (09:41)
[2017-11-06] MEDS: amLODIPine 10 MG TAB PO (09:41)
[2017-11-06] MEDS: CALCIUM/VITAMIN D 500 MG TAB PO (09:41)
[2017-11-06] MEDS: HumaLOG INSULIN (NovoLOG) PER UNIT SC (09:42)
[2017-11-06] MEDS: HEPARIN SOD (PORCINE) 5000 UNITS/ML VIAL SC (09:42)
== END 2017-11-06 11:27 | disposition home or self-care (01) | DRG 164 ==
LOC: M OR 05:54 → M PCU 11-04 18:40 → M ICU 14:42
PROVIDERS: Thoracic Surgery (Cardiothoracic Vascular Surgery)
PROC: 0WBC0ZZ Excision of Mediastinum, Open Approach (ICD-10-PCS; principal; 2017-11-02 07:30)
DX: C78.1 Secondary malignant neoplasm of mediastinum (principal); J98.11 Atelectasis; J98.6 Disorders of diaphragm; E11.9 Type 2 diabetes mellitus without complications; I10 Essential (primary) hypertension; E83.51 Hypocalcemia; R00.1 Bradycardia, unspecified; Z79.82 Long term (current) use of aspirin; Z79.84 Long term (current) use of oral hypoglycemic drugs; Z79.899 Other long term (current) drug therapy; Z86.718 Personal history of other venous thrombosis and embolism

== ENCOUNTER → 2017-11-15 | Outpatient (CLI) | payer OTHER | LOC: M SMT 09:09 | DX: D15.2 Benign neoplasm of mediastinum (principal) | CPT/HCPCS: 71046 ==

== ENCOUNTER → 2017-11-22 | Outpatient (REF) | payer OTHER ==
[2017-11-22 21:15] LABS: FERRITIN 16 NG/ML (8-252); IRON (FE) 19 UG/DL (50-170); PERCENT SATURATION 4.5 % (13.2-45.0); TOTAL IRON BINDING CAPACITY 419 UG/DL (250-450)
== END ==
LOC: M LAB REF 19:06
DX: C50.919 Malignant neoplasm of unspecified site of unspecified female breast (principal); D50.9 Iron deficiency anemia, unspecified; Z79.899 Other long term (current) drug therapy
CPT/HCPCS: 83550

== ENCOUNTER → 2017-11-23 | Outpatient (CLI) | payer OTHER | LOC: M RAD 11:22 | DX: C50.919 Malignant neoplasm of unspecified site of unspecified female breast (principal) | CPT/HCPCS: 71046 ==

== ENCOUNTER → 2017-12-07 | Outpatient (CLI) | payer OTHER | LOC: M PLARAD 11:24 | DX: C7A.1 Malignant poorly differentiated neuroendocrine tumors (principal) | CPT/HCPCS: 78815 ==

== ENCOUNTER → 2017-12-09 | Outpatient (CLI) | payer OTHER ==
[~2017-12-09] MED LIST changes: +GASTROGRAFIN SOLUTION 30ML (Q9963) As Ordered; +ISOVUE-370 76% 100ML VIAL (Q9967) As Ordered; -ISOVUE-370 76% 100ML VIAL (Q9967) As Ordered ONE
== END ==
LOC: M RAD 11:22
DX: C7A.1 Malignant poorly differentiated neuroendocrine tumors (principal); R22.2 Localized swelling, mass and lump, trunk
CPT/HCPCS: Q9963

== ENCOUNTER → 2017-12-13 | Outpatient (REF) | payer OTHER ==
[2017-12-13 13:32] LABS: INR 0.98; PROTHROMBIN TIME 13.1 SECONDS (12.4-14.5)
[2017-12-13 13:33] LABS: PARTIAL THROMBOPLASTIN TIME 26.7 SECONDS (26.8-37.9)
== END ==
LOC: M LAB REF 12:50
DX: C50.919 Malignant neoplasm of unspecified site of unspecified female breast (principal); Z79.01 Long term (current) use of anticoagulants
CPT/HCPCS: 85610

== ENCOUNTER → 2017-12-20 | Outpatient (CLI) | payer OTHER | LOC: M SMT 08:37 | DX: C38.1 Malignant neoplasm of anterior mediastinum (principal); Z98.890 Other specified postprocedural states | CPT/HCPCS: 71046 ==

== ENCOUNTER → 2017-12-28 | Outpatient (REF) | payer OTHER ==
[2017-12-28 13:29] LABS: PROTHROMBIN TIME 13.3 SECONDS (12.4-14.5)
[2017-12-28 13:30] LABS: PARTIAL THROMBOPLASTIN TIME 27.1 SECONDS (26.8-37.9)
== END ==
LOC: M LAB REF 12:57
DX: C50.919 Malignant neoplasm of unspecified site of unspecified female breast (principal); Z79.01 Long term (current) use of anticoagulants
CPT/HCPCS: 85610

== ENCOUNTER 2018-01-06 14:32 | Emergency (ER) | payer OTHER ==
[2018-01-06] MEDS ORDERED: ISOVUE-370 76% 100ML VIAL (Q9967) As Ordered (14:45)
[2018-01-06] MEDS: IPRATROPIUM 0.5MG/ALBUTEROL 2.5MG INH SOL UD 3ML (DUONEB)(J7620) NEB (16:30)
[2018-01-06] MEDS: ALBUTEROL 90 MCG/ACT 8GM HFA INHALER INH (16:51)
== END 2018-01-06 17:08 | disposition home or self-care (01) ==
LOC: M ED 14:32
DX: J98.01 Acute bronchospasm (principal); E11.9 Type 2 diabetes mellitus without complications; I10 Essential (primary) hypertension; K21.9 Gastro-esophageal reflux disease without esophagitis; E78.5 Hyperlipidemia, unspecified; C78.1 Secondary malignant neoplasm of mediastinum; Z85.3 Personal history of malignant neoplasm of breast; Z88.5 Allergy status to narcotic agent; Z79.899 Other long term (current) drug therapy; Z79.84 Long term (current) use of oral hypoglycemic drugs; Z79.82 Long term (current) use of aspirin; F17.210 Nicotine dependence, cigarettes, uncomplicated
CPT/HCPCS: Q9967

== ENCOUNTER → 2018-01-10 | Outpatient (CLI) | payer OTHER ==
[~2018-01-10] MED LIST changes: -GASTROGRAFIN SOLUTION 30ML (Q9963) As Ordered; -ISOVUE-370 76% 100ML VIAL (Q9967) As Ordered; +LIDOCAINE 2% MDV 20 ML VIAL As Ordered; +MIDAZOLAM INJ 2 MG/2 ML VIAL (J2250) As Ordered; +ceFAZolin 1GM INJ (J0690 PER 500MG) As Ordered; +fentaNYL 100 MCG/2 ML INJECTION (J3010) As Ordered
== END | disposition home or self-care (01) ==
LOC: M IRPRO 09:06
DX: C50.911 Malignant neoplasm of unspecified site of right female breast (principal); C7A.1 Malignant poorly differentiated neuroendocrine tumors; E11.9 Type 2 diabetes mellitus without complications; I10 Essential (primary) hypertension; I78.0 Hereditary hemorrhagic telangiectasia; F17.210 Nicotine dependence, cigarettes, uncomplicated
CPT/HCPCS: 36561

== ENCOUNTER → 2018-02-09 | Outpatient (CLI) | payer OTHER ==
[~2018-02-09] MED LIST changes: +ISOVUE-370 76% 100ML VIAL (Q9967) As Ordered; -LIDOCAINE 2% MDV 20 ML VIAL As Ordered; -MIDAZOLAM INJ 2 MG/2 ML VIAL (J2250) As Ordered; -ceFAZolin 1GM INJ (J0690 PER 500MG) As Ordered; -fentaNYL 100 MCG/2 ML INJECTION (J3010) As Ordered
== END ==
LOC: M RAD 08:08
DX: Z85.29 Personal history of malignant neoplasm of other respiratory and intrathoracic organs (principal); J84.9 Interstitial pulmonary disease, unspecified; I31.3 Pericardial effusion (noninflammatory); E04.2 Nontoxic multinodular goiter
CPT/HCPCS: Q9967

== ENCOUNTER → 2018-02-11 | Outpatient (REF) | payer OTHER ==
[2018-02-11 14:23] LABS: ALBUMIN 3.9 GM/DL (3.2-5.2); ALBUMIN/GLOBULIN RATIO 1.44 (1.00-1.93); ALKALINE PHOSPHATASE 65 U/L (45-117); ALT/SGPT 22 U/L (12-78); ANION GAP 6 MEQ/L (8-16); AST/SGOT 9 U/L (7-37); BILIRUBIN,TOTAL 0.4 MG/DL (0.2-1.0); BLOOD UREA NITROGEN 17 MG/DL (7-18); CALCIUM LEVEL 8.7 MG/DL (8.8-10.2); CARBON DIOXIDE LEVEL 29 MEQ/L (21-32); CHLORIDE LEVEL 107 MEQ/L (98-107); CHOLESTEROL LEVEL 90 MG/DL (<200); CHOLESTEROL RISK RATIO 1.914 (<5); CREATININE FOR GFR 0.54 MG/DL (0.55-1.30); GLOMERULAR FILTRATION RATE > 60.0 (>45); GLUCOSE, FASTING 70 MG/DL (70-100); HDL CHOLESTEROL 47 MG/DL (>40); LDL CHOLESTEROL 10.8 MG/DL (<100); NON-HDL-C 43 MG/DL; POTASSIUM SERUM 3.8 MEQ/L (3.5-5.1); SODIUM LEVEL 142 MEQ/L (136-145); TOTAL PROTEIN 6.6 GM/DL (6.4-8.2); TRIGLYCERIDES LEVEL 161 MG/DL (<150)
[2018-02-11 15:27] LABS: ESTIMATED AVERAGE GLUCOSE 163 MG/DL (60-110); HEMOGLOBIN A1c 7.3 %
== END ==
LOC: M LAB REF 13:42
DX: E11.65 Type 2 diabetes mellitus with hyperglycemia (principal); I10 Essential (primary) hypertension; E78.2 Mixed hyperlipidemia
CPT/HCPCS: 80053

== ENCOUNTER 2018-03-16 10:38 | Inpatient (IN) | payer OTHER ==
[2018-03-16] MEDS: NS 1,000 ML IV (11:10)
[2018-03-16 11:41] LABS: BASO % 0.3 % (0.0-1.0); EOS # 0.2 10^3/uL (0.0-0.50); EOS % 1.6 % (0.0-3.0); HEMATOCRIT 28.4 % (36.0-47.0); HEMOGLOBIN 8.8 g/dl (12.0-15.5); IMMATURE GRANULOCYTE % 1.4 % (0-3.0); LYMPH # 1.6 10^3/uL (1.5-4.5); LYMPH % 11.3 % (24.0-44.0); MEAN CORPUSCULAR HEMOGLOBIN 27.5 pg (27.0-33.0); MEAN CORPUSCULAR VOLUME 88.8 fl (80.0-96.0); MONO # 0.8 10^3/uL (0.0-0.8); MONO % 5.7 % (0.0-5.0); NEUTROPHILS # 11.1 10^3/uL (1.8-7.7); NEUTROPHILS % 79.7 % (36.0-66.0); RED CELL DISTRIBUTION WIDTH 32.6 % (11.5-14.5); WHITE BLOOD COUNT 13.9 10^3/uL (4.0-10.0)
[2018-03-16 11:58] LABS: PLATELET COUNT, AUTOMATED 57 10^3/uL (150-450)
[2018-03-16 11:59] LABS: INR 0.94; PROTHROMBIN TIME 12.6 SECONDS (12.4-14.5)
[2018-03-16 12:00] LABS: IMMATURE PLATELET FRACTION % 8.4 % (0.0-9.6); PARTIAL THROMBOPLASTIN TIME 24.4 SECONDS (26.8-37.9)
[2018-03-16 12:02] LABS: ALBUMIN 3.3 GM/DL (3.2-5.2); ALBUMIN/GLOBULIN RATIO 0.89 (1.00-1.93); ALKALINE PHOSPHATASE 93 U/L (45-117); ALT/SGPT 20 U/L (12-78); ANION GAP 7 MEQ/L (8-16); AST/SGOT 13 U/L (7-37); BILIRUBIN,DIRECT < 0.1 MG/DL (0.0-0.2); BILIRUBIN,TOTAL 0.4 MG/DL (0.2-1.0); BLOOD UREA NITROGEN 11 MG/DL (7-18); CALCIUM LEVEL 8.9 MG/DL (8.8-10.2); CARBON DIOXIDE LEVEL 30 MEQ/L (21-32); CHLORIDE LEVEL 104 MEQ/L (98-107); CPK CREATINE PHOSPHOKINASE 39 U/L (26-192); CREATININE FOR GFR 0.66 MG/DL (0.55-1.30); FREE T4 1.19 NG/DL (0.76-1.46); GLOMERULAR FILTRATION RATE > 60.0 (>45); GLUCOSE, FASTING 98 MG/DL (70-100); LIPASE 172 U/L (73-393); POTASSIUM SERUM 3.5 MEQ/L (3.5-5.1); SODIUM LEVEL 141 MEQ/L (136-145); TROPONIN I < 0.02 NG/ML (< 0.10)
[2018-03-16 12:06] LABS: LACTIC ACID SEPSIS PROTOCOL 2.9 MMOL/L (0.4-2.0)
[2018-03-16 12:07] LABS: CK-MB VALUE MASS < 1.0 NG/ML (<3.6); MB/CK RELATIVE INDEX 2.56 (< OR =4)
[2018-03-16 12:16] LABS: HEMATOCRIT 26.8 % (36.0-47.0); HEMOGLOBIN 8.4 g/dl (12.0-15.5); MEAN CORPUSCULAR HEMOGLOBIN 27.9 pg (27.0-33.0); MEAN CORPUSCULAR HGB CONC 31.3 g/dl (32.0-36.5); RED BLOOD COUNT 3.01 10^6/uL (4.00-5.40); RED CELL DISTRIBUTION WIDTH 32.7 % (11.5-14.5); WHITE BLOOD COUNT 13.3 10^3/uL (4.0-10.0)
[2018-03-16 12:20] LABS: PLATELET COUNT, AUTOMATED 57 10^3/uL (150-450); POSITIVE MORPH POS FLAG; SUSPECT SAMPLE POS FLAG
[2018-03-16] MEDS ORDERED: ISOVUE-370 76% 100ML VIAL (Q9967) As Ordered (12:54)
[2018-03-16] MEDS: EMLA CREAM 5GM (LIDOCAINE/PRILOCAINE) TOP (14:46)
[2018-03-16 17:28] LABS: IMMEDIATE SPIN CROSSMATCH 1 2
[2018-03-16] MEDS: NORCO, ANEXSIA 5/325MG TABLET (HYDROcodone/ACETAMINOPHEN) PO (18:12)
[2018-03-16] MEDS ORDERED: BISACODYL 10 MG SUPP PR (19:00)
[2018-03-16] MEDS ORDERED: ONDANSETRON 4 MG TAB (S0181) PO (19:00)
[2018-03-16] MEDS ORDERED: ACETAMINOPHEN TAB 650MG DOSE (2X325MG) PO (19:00)
[2018-03-16] MEDS ORDERED: GLUCAGON FOR INJ 1 MG VIAL (J1610) SC (19:15)
[2018-03-16] MEDS ORDERED: DEXTROSE 50% 50 ML SYRINGE IV (19:15)
[2018-03-16] MEDS ORDERED: GLUCOSE 4 GM CHEW TABLET PO (19:15)
[2018-03-16] MEDS: HumaLOG INSULIN (NovoLOG) PER UNIT SC (21:00)
[2018-03-16] MEDS ORDERED: SLF 3 ML SYR IV (21:15)
[2018-03-16 21:32] LABS: APPEARANCE, URINE CLEAR (CLEAR); BACTERIA, URINE AUTO NEGATIVE (NEGATIVE); BILIRUBIN, URINE AUTO NEGATIVE (NEGATIVE); BLOOD, URINE BLOOD NEGATIVE (NEGATIVE); COLOR, URINE YELLOW (YELLOW); GLUCOSE, URINE (UA) AUTO 3+ mg/dL (NEGATIVE); KETONE, URINE AUTO NEGATIVE (NEGATIVE); LEUKOCYTE ESTERASE, URINE AUTO TRACE (NEGATIVE); NITRITE, URINE AUTO NEGATIVE (NEGATIVE); PROTEIN, URINE AUTO NEGATIVE (NEGATIVE); RBC, URINE AUTO 2 /HPF (0-3); SPECIFIC GRAVITY URINE AUTO 1.043 (1.002-1.035); SQUAMOUS EPITHELIAL CELL UR AU 1 /HPF (0-6); UROBILINOGEN, URINE AUTO 0.2 mg/dL (0.0-2.0); WBC, URINE AUTO 26 /HPF (0-3)
[2018-03-16 22:00] LABS: BEDSIDE GLUCOSE 123 MG/DL (80-115)
[2018-03-16] MEDS: FLUTICASONE PROP 0.05% NASAL SPRAY 16 GM (FLONASE) (22:15)
[2018-03-16] MEDS: AMITRIPTYLINE 10 MG TAB PO (22:15)
[2018-03-16] MEDS: SLF 3 ML SYR IV (22:15)
[2018-03-16] MEDS: SENOKOT S TAB PO (22:15)
[2018-03-17] MEDS: SLF 3 ML SYR IV ×3 (05:03→20:51)
[2018-03-17 05:44] LABS: BASO % 0.3 % (0.0-1.0); EOS # 0.2 10^3/uL (0.0-0.50); EOS % 1.6 % (0.0-3.0); HEMATOCRIT 32.7 % (36.0-47.0); IMMATURE GRANULOCYTE % 1.8 % (0-3.0); LYMPH # 1.2 10^3/uL (1.5-4.5); LYMPH % 9.8 % (24.0-44.0); MEAN CORPUSCULAR HGB CONC 32.1 g/dl (32.0-36.5); MEAN CORPUSCULAR VOLUME 87.2 fl (80.0-96.0); MONO # 0.7 10^3/uL (0.0-0.8); MONO % 5.5 % (0.0-5.0); RED BLOOD COUNT 3.75 10^6/uL (4.00-5.40); RED CELL DISTRIBUTION WIDTH 29.2 % (11.5-14.5); WHITE BLOOD COUNT 12.4 10^3/uL (4.0-10.0)
[2018-03-17 05:47] LABS: HEMOGLOBIN 10.5 g/dl (12.0-15.5); PLATELET COUNT, AUTOMATED 60 10^3/uL (150-450)
[2018-03-17 06:03] LABS: ALBUMIN 3.1 GM/DL (3.2-5.2); ALBUMIN/GLOBULIN RATIO 0.94 (1.00-1.93); ALKALINE PHOSPHATASE 92 U/L (45-117); ALT/SGPT 16 U/L (12-78); ANION GAP 6 MEQ/L (8-16); AST/SGOT 12 U/L (7-37); BILIRUBIN,TOTAL 0.4 MG/DL (0.2-1.0); BLOOD UREA NITROGEN 8 MG/DL (7-18); CALCIUM LEVEL 8.7 MG/DL (8.8-10.2); CARBON DIOXIDE LEVEL 30 MEQ/L (21-32); CHLORIDE LEVEL 104 MEQ/L (98-107); CREATININE FOR GFR 0.49 MG/DL (0.55-1.30); GLOMERULAR FILTRATION RATE > 60.0 (>45); GLUCOSE, FASTING 106 MG/DL (70-100); MAGNESIUM LEVEL 1.4 MG/DL (1.8-2.4); POTASSIUM SERUM 3.5 MEQ/L (3.5-5.1); SODIUM LEVEL 140 MEQ/L (136-145); TOTAL PROTEIN 6.4 GM/DL (6.4-8.2)
[2018-03-17] MEDS ORDERED: ALBUTEROL SULFATE 2.5 MG/0.5 ML INH NEB SOLN NEB (06:30)
[2018-03-17] MEDS: MAG SULF 1GM/100ML (MAG RUN) 1 GM in APPROPRIATE DILUENT 1 EA IV ×2 (06:52→09:14)
[2018-03-17] MEDS: HumaLOG INSULIN (NovoLOG) PER UNIT SC ×4 (07:30→20:52)
[2018-03-17] MEDS: ENOXAPARIN 30 MG/0.3 ML SYR (J1650) SC ×2 (09:00→09:15)
[2018-03-17] MEDS: PANTOPRAZOLE 40MG TAB (PROTONIX) PO (09:15)
[2018-03-17] MEDS: FLUTICASONE PROP 0.05% NASAL SPRAY 16 GM (FLONASE) ×2 (09:15→20:52)
[2018-03-17] MEDS: SENOKOT S TAB PO ×2 (09:15→20:50)
[2018-03-17] MEDS: amLODIPine 10 MG TAB PO (09:16)
[2018-03-17] MEDS: MULTIVITAMINS/MINERALS THERAP 1 TAB PO (09:16)
[2018-03-17] MEDS: ASPIRIN 81 MG ENTERIC TAB PO (09:16)
[2018-03-17] MEDS: GLIMEPIRIDE 2 MG TAB PO (09:16)
[2018-03-17] MEDS: RAMIPRIL 5 MG CAP PO (09:17)
[2018-03-17] MEDS: SIMVASTATIN 40 MG TAB PO (09:18)
[2018-03-17] MEDS: ATENOLOL 50 MG TAB PO (09:18)
[2018-03-17] MEDS: DYAZIDE 37.5/25 CAP (TRIAM/HCTZ) PO (09:32)
[2018-03-17 11:48] LABS: BEDSIDE GLUCOSE 266 MG/DL (80-115)
[2018-03-17 16:43] LABS: BEDSIDE GLUCOSE 222 MG/DL (80-115)
[2018-03-17 20:46] LABS: BEDSIDE GLUCOSE 201 MG/DL (80-115)
[2018-03-17] MEDS: AMITRIPTYLINE 10 MG TAB PO (20:50)
[2018-03-18] MEDS: SLF 3 ML SYR IV (05:52)
[2018-03-18 07:28] LABS: BASO % 0.3 % (0.0-1.0); EOS # 0.1 10^3/uL (0.0-0.50); EOS % 1.1 % (0.0-3.0); HEMATOCRIT 33.2 % (36.0-47.0); HEMOGLOBIN 10.6 g/dl (12.0-15.5); LYMPH # 1.2 10^3/uL (1.5-4.5); LYMPH % 9.1 % (24.0-44.0); MEAN CORPUSCULAR HEMOGLOBIN 27.9 pg (27.0-33.0); MEAN CORPUSCULAR HGB CONC 31.9 g/dl (32.0-36.5); MEAN CORPUSCULAR VOLUME 87.4 fl (80.0-96.0); MONO # 0.9 10^3/uL (0.0-0.8); MONO % 7.1 % (0.0-5.0); NEUTROPHILS % 77.4 % (36.0-66.0); RED CELL DISTRIBUTION WIDTH 29.6 % (11.5-14.5); WHITE BLOOD COUNT 12.9 10^3/uL (4.0-10.0)
[2018-03-18 07:34] LABS: IMMATURE PLATELET FRACTION % 6.6 % (0.0-9.6); PLATELET COUNT, AUTOMATED 90 10^3/uL (150-450); PLATELET F 99
[2018-03-18 07:47] LABS: ALBUMIN 3.2 GM/DL (3.2-5.2); ALBUMIN/GLOBULIN RATIO 0.89 (1.00-1.93); ALKALINE PHOSPHATASE 99 U/L (45-117); ALT/SGPT 16 U/L (12-78); ANION GAP 6 MEQ/L (8-16); AST/SGOT 14 U/L (7-37); BILIRUBIN,TOTAL 0.5 MG/DL (0.2-1.0); BLOOD UREA NITROGEN 11 MG/DL (7-18); CALCIUM LEVEL 8.7 MG/DL (8.8-10.2); CARBON DIOXIDE LEVEL 28 MEQ/L (21-32); CHLORIDE LEVEL 104 MEQ/L (98-107); CREATININE FOR GFR 0.43 MG/DL (0.55-1.30); GLOMERULAR FILTRATION RATE > 60.0 (>45); GLUCOSE, FASTING 152 MG/DL (70-100); MAGNESIUM LEVEL 1.5 MG/DL (1.8-2.4); POTASSIUM SERUM 3.4 MEQ/L (3.5-5.1); SODIUM LEVEL 138 MEQ/L (136-145); TOTAL PROTEIN 6.8 GM/DL (6.4-8.2)
[2018-03-18] MEDS: PANTOPRAZOLE 40MG TAB (PROTONIX) PO (08:11)
[2018-03-18] MEDS: HumaLOG INSULIN (NovoLOG) PER UNIT SC (08:11)
[2018-03-18] MEDS: GLIMEPIRIDE 2 MG TAB PO (08:11)
[2018-03-18] MEDS: SENOKOT S TAB PO (08:11)
[2018-03-18] MEDS: RAMIPRIL 5 MG CAP PO (08:11)
[2018-03-18] MEDS: ASPIRIN 81 MG ENTERIC TAB PO (08:11)
[2018-03-18] MEDS: MULTIVITAMINS/MINERALS THERAP 1 TAB PO (08:12)
[2018-03-18] MEDS: amLODIPine 10 MG TAB PO (08:12)
[2018-03-18] MEDS: ATENOLOL 50 MG TAB PO (08:12)
[2018-03-18] MEDS: SIMVASTATIN 40 MG TAB PO (08:12)
[2018-03-18] MEDS: DYAZIDE 37.5/25 CAP (TRIAM/HCTZ) PO (08:12)
[2018-03-18] MEDS: ENOXAPARIN 30 MG/0.3 ML SYR (J1650) SC ×2 (08:12→09:00)
[2018-03-18] MEDS: FLUTICASONE PROP 0.05% NASAL SPRAY 16 GM (FLONASE) (08:13)
[2018-03-18] MEDS: SODIUM CHLORIDE 0.9% INJ 10 ML SYR IV (09:53)
== END 2018-03-18 11:50 | disposition home or self-care (01) | DRG 812 ==
LOC: M ED 10:38 → M MSPAV 03-17 09:39 → M ED INP 18:56 → M PCU 20:53
PROVIDERS: Pediatrics
PROC: 30233N1 Transfusion of Nonautologous Red Blood Cells into Peripheral Vein, Percutaneous Approach (ICD-10-PCS; principal; 2018-03-16)
DX: D64.81 Anemia due to antineoplastic chemotherapy (principal); J90 Pleural effusion, not elsewhere classified; C00-D49 Neoplasms; E87.2 Acidosis; E11.9 Type 2 diabetes mellitus without complications; E83.42 Hypomagnesemia; R91.8 Other nonspecific abnormal finding of lung field; I10 Essential (primary) hypertension; D69.59 Other secondary thrombocytopenia; Z79.84 Long term (current) use of oral hypoglycemic drugs; Z79.82 Long term (current) use of aspirin; Z79.899 Other long term (current) drug therapy; Z88.5 Allergy status to narcotic agent

== ENCOUNTER → 2018-03-21 | Outpatient (CLI) | payer OTHER | LOC: M WHC 11:07 | DX: Z12.31 Encounter for screening mammogram for malignant neoplasm of breast (principal); Z85.3 Personal history of malignant neoplasm of breast | CPT/HCPCS: 77067 ==

== ENCOUNTER 2018-04-08 12:48 | Emergency (ER) | payer OTHER ==
[2018-04-08] MEDS ORDERED: SODIUM CHLORIDE 0.9% INJ 10 ML SYR IV (13:30)
[2018-04-08 14:08] LABS: ANION GAP 9 MEQ/L (8-16); BLOOD UREA NITROGEN 14 MG/DL (7-18); CALCIUM LEVEL 8.6 MG/DL (8.8-10.2); CARBON DIOXIDE LEVEL 28 MEQ/L (21-32); CHLORIDE LEVEL 105 MEQ/L (98-107); GLOMERULAR FILTRATION RATE > 60.0 (>45); GLUCOSE, FASTING 202 MG/DL (70-100); POTASSIUM SERUM 3.6 MEQ/L (3.5-5.1); SODIUM LEVEL 142 MEQ/L (136-145)
[2018-04-08 14:25] LABS: ALBUMIN 2.8 GM/DL (3.2-5.2); TOTAL PROTEIN 6.4 GM/DL (6.4-8.2)
== END 2018-04-08 15:59 | disposition home or self-care (01) ==
LOC: M ED 12:48
DX: R60.0 Localized edema (principal); E88.09 Other disorders of plasma-protein metabolism, not elsewhere classified; C78.00 Secondary malignant neoplasm of unspecified lung; J90 Pleural effusion, not elsewhere classified; I10 Essential (primary) hypertension; E11.9 Type 2 diabetes mellitus without complications; C50.011 Malignant neoplasm of nipple and areola, right female breast; Z87.891 Personal history of nicotine dependence; Z88.5 Allergy status to narcotic agent; Z79.899 Other long term (current) drug therapy; Z79.82 Long term (current) use of aspirin; Z79.84 Long term (current) use of oral hypoglycemic drugs
CPT/HCPCS: 93970

== ENCOUNTER → 2018-04-22 | Outpatient (CLI) | payer OTHER | LOC: M RAD 09:12 | DX: C38.1 Malignant neoplasm of anterior mediastinum (principal); E04.2 Nontoxic multinodular goiter | CPT/HCPCS: Q9967 ==

== ENCOUNTER → 2018-06-06 | Outpatient (REF) | payer OTHER ==
[2018-06-06 14:25] LABS: CHOLESTEROL LEVEL 116 MG/DL (<200); CHOLESTEROL RISK RATIO 2.416 (<5); HDL CHOLESTEROL 48 MG/DL (>40); LDL CHOLESTEROL 26.8 MG/DL (<100); NON-HDL-C 68 MG/DL; TRIGLYCERIDES LEVEL 206 MG/DL (<150)
[2018-06-06 14:37] LABS: ESTIMATED AVERAGE GLUCOSE 131 MG/DL (60-110); HEMOGLOBIN A1c 6.2 %
[2018-06-06 14:50] LABS: MALB URINE SIEMENS 19.3 MG/L; MAU/CREAT RATIO 41.9 MCG/MG (0.0-30.0)
== END ==
LOC: M LAB REF 13:23
DX: E11.65 Type 2 diabetes mellitus with hyperglycemia (principal); I10 Essential (primary) hypertension; E78.2 Mixed hyperlipidemia; E55.9 Vitamin D deficiency, unspecified
CPT/HCPCS: 83036

== ENCOUNTER → 2018-07-18 | Outpatient (REF) | payer OTHER ==
[2018-07-18 14:10] LABS: FREE T4 1.18 NG/DL (0.76-1.46); RHEUMATOID FACTOR QUANT < 10.0 IU/ML (<15.0); TOTAL PROTEIN 6.6 GM/DL (6.4-8.2)
[2018-07-18 14:11] LABS: FOLATE 17.4 NG/ML
[2018-07-18 14:14] LABS: ERYTHROCYTE SEDIMENTATION RATE 9 mm/hr (0-30)
[2018-07-19 14:10] LABS: ALBUMIN 3.78 GM/DL (3.29-5.55); ALBUMIN % 57.3 % (55.8-66.1); ALPHA-1-GLOBULIN % 5.1 % (2.9-4.9); ALPHA-1-GLOBULINS 0.34 GM/DL (0.17-0.41); ALPHA-2-GLOBULINS 0.93 GM/DL (0.42-0.99); ALPHA-2-GLOBULINS % 14.1 % (7.1-11.8); BETA-1-GLOBULINS 0.52 GM/DL (0.28-0.60); BETA-1-GLOBULINS % 7.9 % (4.7-7.2); BETA-2-GLOBULINS 0.32 GM/DL (0.19-0.55); BETA-2-GLOBULINS % 4.9 % (3.2-6.5); GAMMA GLOBULIN % 10.7 % (11.1-18.8); GAMMA GLOBULINS 0.71 GM/DL (0.65-1.58)
[2018-07-22 09:44] LABS: ANTINUCLEAR ANTIBODIES DIRECT Negative (Negative); Methylmalonic Acid 412 nmol/L (0-378); VITAMIN B1 LEVEL WHOLE BLOOD 158.3 nmol/L (66.5-200.0); VITAMIN B6,PYRIDOXAL PHOSPHATE 5.1 ug/L (2.0-32.8); VITAMIN E(ALPHA TOCOPHEROL) 8.8 mg/L (9.0-29.0); VITAMIN E(GAMMA TOCOPHEROL) 1.2 mg/L (0.5-4.9)
== END ==
LOC: M LAB REF 12:17
DX: E07.9 Disorder of thyroid, unspecified (principal); G62.9 Polyneuropathy, unspecified
CPT/HCPCS: 82746

== ENCOUNTER → 2018-07-26 | Outpatient (CLI) | payer OTHER | LOC: M PLARAD 15:17 | DX: C00-D49 Neoplasms (principal); E04.2 Nontoxic multinodular goiter; Z98.890 Other specified postprocedural states | CPT/HCPCS: 78815 ==

== ENCOUNTER 2019-01-17 10:19 | Outpatient (RCR) | payer OTHER, MEDICARE ==
[2018-07-18 12:24] LABS: HEMATOCRIT 41.6 % (37.0-51.0); HEMOGLOBIN 13.1 g/dl (12.0-18.0); LYMPH % 22.6 % (10.0-58.5); MEAN CORPUSCULAR HEMOGLOBIN 27.5 pg (26.0-32.0); MEAN CORPUSCULAR HGB CONC 31.5 g/dl (31.0-36.0); MEAN CORPUSCULAR VOLUME 87.2 fl (80.0-97.0); NEUTROPHILS # 5.1 10^3/uL (2.0-7.8); NEUTROPHILS % 70.5 % (37.0-92.0); RED BLOOD COUNT 4.77 10^6/uL (4.2-6.3); WHITE BLOOD COUNT 7.3 10^3/uL (4.1-10.9)
[2018-07-18 12:36] VITALS: BP 123/78
[2018-07-18 13:36] LABS: ALBUMIN 4.4 GM/DL (3.5-5.2); BLOOD UREA NITROGEN 15 MG/DL (6-20); CALCIUM LEVEL 10.1 MG/DL (8.5-10.2); CARBON DIOXIDE LEVEL 34.3 MEQ/L (23-31); CHLORIDE LEVEL 99 MMOL/L (98-107); CREATININE FOR GFR 0.77 MG/DL (0.60-1.10); GLOMERULAR FILTRATION RATE > 60.0 (>45); GLUCOSE, FASTING 120 MG/DL (70-105); POTASSIUM SERUM 3.6 MMOL/L (3.5-5.1); TOTAL PROTEIN 6.9 GM/DL (6.4-8.3)
--- NOTE | 2018-07-20 07:51 | MEDONC ---
MEDICAL ONCOLOGY FOLLOWUP VISIT DATE OF SERVICE: 07/18/2018 Lucia is seen today by MALINI Ratliff with Dr. Delia Swann, the supervising physician. DIAGNOSES: 1. High-grade NET of mediastinum, uncertain primary, status post resection, KINZA by PET on restaging, diagnosed 11/02/2017, status post adjuvant chemotherapy with carboplatin and etoposide times five cycles. Cycle number six discontinued. 2. Personal history of right breast cancer early stage 2011, status post lumpectomy, radiation and continuing on adjuvant endocrine therapy with Arimidex (for reasons unknown to me, it was erroneously reported in previous followup notes that all therapy had been completed. This is incorrect, as per the followup note dated 07/01/2017, the patient opted to continue with "hormone therapy" beyond the 5 years). 3. Long-term smoker, screening lung CT detected mediastinal tumor ultimately diagnosed as an NET. CURRENT THERAPY: Observation. PREVIOUS THERAPY: Carboplatin / etoposide day 1 cycle one 12/28/2017. Cycle number five day 1, 03/28/2018. Cycle number six discontinued due to toxicity. INTERVAL HISTORY: Lucia presents today for a scheduled followup visit. At present, she claims to be in her usual state of health and offers no new complaints. Reportedly, she has been discharged from Dr. Bejarano's care. At present, Lucia notes mild dyspnea with exertion, which is unchanged status post mediastinal tumor excision / main pulmonary artery lymph node excision 11/02/2017. Lucia also reports some persistent neuropathy in her hands and feet, however fortunately this does not cause problems with fine motor skills or balance. Currently, Lucia also reports mild intermittent pedal edema. She does have Lasix to take p.r.n. REVIEW OF SYSTEMS: 12 system review completed and is as noted above. The remainder of 12 system review is negative. PHYSICAL EXAMINATION: Weight is 69.4 kg, temperature 97.4, pulse 70, respirations 24, blood pressure 126/83, O2 sat 97% at rest on room air. GENERAL EXAM: Reveals a pleasant, well-groomed, youthful middle-aged female, who is clinically stable and in no acute distress. HEENT: No scleral icterus. Oral pharynx, oral mucous membranes normal. Conjunctivae normal. No thyroid enlargement or nodule. No jugular venous distention. Neck supple. Carotid upstrokes 1+, no bruits. Fundi normal bilaterally. RESPIRATORY: Lungs clear bilaterally to auscultation and percussion. No rales, rhonchi, or wheezing. CARDIOVASCULAR: PMI 5th left intercostal space, midline. S1, S2 normal. No S3, S4 or murmurs. Regular rhythm. Femoral, dorsalis pedis pulses 2+ bilaterally. LYMPHATICS: No palpable lymphadenopathy. ABDOMEN: Soft, nontender. Bowel sounds normal. No tenderness, guarding, or rebound. No palpable masses or hepatosplenomegaly. MUSCULOSKELETAL: No focal skeletal tenderness to percussion. No joint swelling, warmth, tenderness, or erythema. SKIN: No rash, ecchymosis, or petechiae. Normal turgor. EXTREMITIES: No edema, clubbing, cyanosis. No thigh or calf tenderness. Normal range of motion. LABORATORY DATA CBC from today is completely normal. Chemistries and repeat iron studies are all pending as of this dictation. IMPRESSION: High-grade NET of mediastinum, uncertain primary, status post resection, KINZA by last PET restaging scan on 11/02/[address] of the chest dated 04/22/2018. No evidence for progression or recurrence based on today's physical exam or the patient's reported current history. PLAN: 1. Obtain current restaging PET scan followed by an office visit thereafter. In regard to Lucia's history of breast cancer, she is current with her annual screening mammogram. She will continue with AI therapy, per her request. At her next visit, we will check on the date of her most recent bone densitometry and order that if she is not current. Reviewed by Milena Douglas NP 07/22/2018 07:20 A Electronically Signed by Delia Swann MD 07/22/2018 08:06 A DD: Milena Douglas NP 07/18/2018 01:48 P DT: rosario 07/20/2018 07:12 A CC: MD Lee Scales MD Rory Sears, [facility]
[2018-08-02 10:18] VITALS: BP 131/77
--- NOTE | 2018-08-03 15:16 | MEDONC ---
MEDICAL ONCOLOGY FOLLOWUP DATE OF SERVICE: 08/02/2018 DIAGNOSIS: 1. High-grade NET of mediastinum uncertain primary status post resection 11/02/2017 5 cm mediastinal mass 0/1 node. Received five cycles carboplatin/etoposide 12/28/2017 - 03/28/2018 cycle six held for toxicity. KINZA by restaging since most recent PET July 2018 negative for evidence of recurrence. 2. Personal history of right breast cancer early stage 2012 status post completed treatment (details available on paper chart). 3. Long-term smoker of late 2017 detected mediastinal mass leading to the NET diagnosis. Most recent chest CT 04/22/2018 with chronic stable pleuroparenchymal changes, small pericardial effusion postsurgical changes in the mediastinum. No other suspicious findings. INTERVAL HISTORY: Lucia was recently seen here by Milena for a history and physical, she was stable at that time, a restaging PET ordered, this was performed 07/26/2018 and it is negative. No significant change from prior exam. Postoperative changes seen multinodular goiter but no abnormal hypermetabolic activity. She is thrilled at the results. We agreed she would return again in 3 months for history and physical, labs. Her last mammogram was 03/21/2018 BI-RADS category 2 benign. 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 She was treated with adjuvant carboplatin/etoposide for five cycles. She has had no evidence of recurrence. Most recent PET 07/2018 negative. She has a remote personal history of early stage breast cancer status post all completed treatment, her annual screening mammogram March 2018 is negative. Her last chest CT was April 2018, therefore, any following screening chest CT should be timed for April 2019 based on her smoking history. PLAN: 1. Return in 3 months for history, physical and labs. Electronically Signed by Delia Swann MD 08/03/2018 07:17 P DD: Delia Swann MD 08/02/2018 06:36 P DT: [email or web address] 08/03/2018 03:05 P CC: MD Lee Scales MD Rory Sears, [facility]
[~2019-01-17] VITALS: Ht 157.5 cm; Wt 70.7 kg
[~2019-01-17 10:19] MED LIST changes: +SODIUM CHLORIDE 0.9% INJ 10 ML SYR IV PRN; +SODIUM CHLORIDE 0.9% INJ 10 ML SYR IV SCH
[2019-01-23] MEDS ORDERED: ANAS1TAB2 PO (13:16)
== END 2019-01-17 10:42 | disposition home or self-care (01) ==
LOC: M ONCM 10:19
PROVIDERS: ATTEND Internal Medicine Medical Oncology
DX: C50.411 Malignant neoplasm of upper-outer quadrant of right female breast (principal); C34.90 Malignant neoplasm of unspecified part of unspecified bronchus or lung; J98.59 Other diseases of mediastinum, not elsewhere classified; Z79.899 Other long term (current) drug therapy
CPT/HCPCS: 36415; 80053; 80061; 82306; 82607; 82746; 83036; 83921; 84165; 84207; 84425; 84439; 84443; 84446; 85027; 85652; 86038; 86334; 86431; 96523; G0463; J1642

== ENCOUNTER → 2019-01-17 | Outpatient (REF) | payer OTHER, MEDICARE ==
[~2019-01-17] MED LIST changes: +ALTA1CAP4 PO; +AMIT10TA PO; +AMLO10TA5 PO; +ANAS1TAB2 PO; +ASPI81TA26 PO; +ATEN50TA2 PO; +BREAMIS6 XX; +CALCTAB75 PO; +FERR1TAB8 PO; +FLON1SPR; +FLUTISP INH; +FURO20TA2 PO; +GLIM2TAB PO; +GLIM4TAB PO; +INVO300T PO; -ISOVUE-370 76% 100ML VIAL (Q9967) As Ordered; +JANU100T PO; +MELO15TA28 PO; +METF10004 PO; +MULT1TAB10 PO; +NEUR100C PO; +OMEP40CA2 PO; +OXYC1TAB23 PO; +POLY150C5 PO; +SIMV40TA2 PO; +TIZA4CAP PO; +TRIA37.5 PO; +TRIA37.53 PO; +TRIAMT/HCTZ PO; +VENTAER IN; +VENTAER INH; +VITA100067 PO; +[UNRECOGNIZED DRUG - CODE] XX
[2019-01-17 11:40] LABS: HEMOGLOBIN A1c 6.9 %
[2019-01-17 11:47] LABS: CHOLESTEROL RISK RATIO 4.244 (<5)
[2019-01-17 11:49] LABS: TOTAL 25(OH) VITAMIN D 51.6 NG/ML (30.0-100.0)
== END ==
LOC: M LAB REF 10:56
PROVIDERS: ATTEND Physician Assistant
DX: E55.9 Vitamin D deficiency, unspecified (principal); E78.2 Mixed hyperlipidemia; E11.65 Type 2 diabetes mellitus with hyperglycemia; I10 Essential (primary) hypertension

== ENCOUNTER → 2019-02-01 | Outpatient (REF) ==
[~2019-02-01] MED LIST changes: -SODIUM CHLORIDE 0.9% INJ 10 ML SYR IV PRN; -SODIUM CHLORIDE 0.9% INJ 10 ML SYR IV SCH
== END ==
LOC: M LAB 16:03
DX: Z02.89 Encounter for other administrative examinations